=== PATIENT | female | born 1955 | race Hispanic/Latino ===

== ENCOUNTER → 2021-10-16 | Outpatient (CLI) | payer OTHER | LOC: MAMMO 14:00 | PROVIDERS: ATTEND Internal Medicine | DX: Z12.31 Encounter for screening mammogram for malignant neoplasm of breast (principal); S83.62XD Sprain of the superior tibiofibular joint and ligament, left knee, subsequent encounter | CPT/HCPCS: 77067 ==

== ENCOUNTER → 2021-11-09 | Outpatient (CLI) | payer OTHER | LOC: MAMMO 08:45 | PROVIDERS: ATTEND Internal Medicine | DX: R92.8 Other abnormal and inconclusive findings on diagnostic imaging of breast (principal) ==